=== PATIENT | female | born 1970 | race Caucasian/White ===

== ENCOUNTER 2016-06-04 23:39 | Emergency (ER) ==
[2016-06-04] MEDS ORDERED: BENADRYL IVP STA (23:40)
[2016-06-04] MEDS ORDERED: SOLU-MEDROL 125 MG IVP STA (23:40)
[2016-06-04 23:49] LABS: BASOPHILS # (AUTO) 0.1 K/uL (0-0.2); BASOPHILS % (AUTO) 0.6 % (0.0-3.0); EOSINOPHILS # (AUTO) 0.2 K/ul (0.0-0.7); EOSINOPHILS % (AUTO) 2.1 % (0.0-7.0); HEMATOCRIT 38.8 % (37.0-47.0); HEMOGLOBIN 13.1 g/dl (12.0-16.0); IMMATURE GRANULOCYTE % (AUTO) 0.4 % (0.0-5.0); LYMPHOCYTES # (AUTO) 3.3 K/uL (0.60-3.4); LYMPHOCYTES % (AUTO) 39.3 (10.0-50.0); MEAN CORPUSCULAR HEMOGLOBIN 28.3 pg (27.0-31.0); MEAN CORPUSCULAR HGB CONC 33.8 (31.8-35.4); MEAN CORPUSCULAR VOLUME 83.8 fl (81.0-99.0); MONOCYTES # (AUTO) 0.7 K/uL (0.4-2.0); MONOCYTES % (AUTO) 8.5 (0-10); NEUTROPHILS # (AUTO) 4.1 K/ul (2.0-6.9); NEUTROPHILS % (AUTO) 49.1; PLATELET COUNT 305 10^3/uL (140-440); RED BLOOD COUNT 4.63 10^6/ul (4.20-5.40); WHITE BLOOD COUNT 8.28 K/ul (4.6-10.2)
[2016-06-05 00:06] LABS: ALBUMIN/GLOBULIN RATIO 1.21; ANION GAP 14.1; BILIRUBIN,TOTAL 0.24 mg/dL (0.00-1.20); BUN/CREATININE RATIO 18.29; CALCIUM 8.7 mg/dL (8.2-10.2); CREATININE 0.82 mg/dL (0.60-1.30); POTASSIUM 3.1 mmol/L (3.5-5.10); TOTAL PROTEIN 7.3 g/dL (6.4-8.2)
[2016-06-05 00:07] VITALS: BP 147/94; TEMP 99.6; BMI 51.6
[2016-06-05] MEDS ORDERED: ATIVAN IM STA (00:27)
--- NOTE | 2016-06-05 00:30 | ED.PDOC ---
General ED Provider: Dr. NEELAM FUNES Chief Complaint: Allergic Reaction Stated Complaint: Face swolen, tongue swollen, has similar problems before couple of times. Time Seen by Physician: 00:28 Mode of Arrival: Ambulance Information Source: Patient Primary Care Provider: ANA LILIA HARRY Nursing and Triage Documentation Reviewed and Agree: Yes Environmental Complaint Exam - Allergic Reaction Complaint/Exam Symptoms Are: Still present Timing: Intermittent Initial Severity: Moderate Current Severity: Moderate Location: Discrete Character: Present: Swelling Aggravating: Reports: None Alleviating: Reports: None Associated Signs and Symptoms: Reports: Difficulty breathing, Hoarseness, Throat tightening. Denies: Cough, Wheezing, Chest pain, Throat swelling, Rash, Abdominal pain, Diaphoresis, Lightheadedness, Syncope, Nausea, Vomiting Possible Reaction To: Reports: Unknown Related History: Similar episode Diphenhydramine Prior to Arrival: No Epinephrine Auto Injector Prior to Arrival: No Respiratory Distress: Mild Findings: Present: Hoarseness, Angioedema Differential Diagnoses: Angioedema, Local Allergic Reaction Review of Systems - Review Of Systems Constitutional: Reports: Malaise, Weakness Eyes: Reports: No symptoms Ears, Nose, Mouth, Throat: Reports: No symptoms Respiratory: Reports: Cough, Short of air Cardiac: Reports: No symptoms GI: Reports: No symptoms : Reports: No symptoms Musculoskeletal: Reports: No symptoms Skin: Reports: No symptoms Neurological: Reports: No symptoms Endocrine: Reports: No symptoms Hematologic/Lymphatic: Reports: No symptoms All Other Systems: Reviewed and Negative Past Medical History - Past Medical History Previously Healthy: No Endocrine: Reports: DM 2 Cardiovascular: Reports: Hypertension Respiratory: Reports: COPD Hematological: Reports: None Gastrointestinal: Reports: GERD Genitourinary: Reports: None Neuro/Psych: Reports: None Musculoskeletal: Reports: None Cancer: Reports: None Last Menstrual Period: 2 weeks - Surgical History General Surgical History: Reports: None - Family History Family History: Reports: None - Social History Smoking Status: Never smoker Hx Substance Use: No Alcohol Screening: Occasionally - Immunizations Tetanus Shot up to Date: No (unsure) Physical Exam - Physical Exam Appearance: Ill-appearing, Obese Ill-appearing: Moderate Eyes: Conjunctiva clear (face is red, swollen tongues) ENT: Ears normal, Nose normal, Oropharynx normal Respiratory: Wheezes Cardiovascular: RRR, Pulses normal, No rub, No murmur GI/: Soft, Nontender, No masses, Bowel sounds normal, No Organomegaly Musculoskeletal: Normal strength, ROM intact, No edema, No calf tenderness Skin: Warm, Dry, Normal color Neurological: Sensation intact, Motor intact, Reflexes intact, Cranial nerves intact, Alert, Oriented Psychiatric: Affect appropriate, Mood appropriate Re-Evaluation - Re-Evaluation Time of Re-Evaluation: 01:25 Status: Improved Critical Care Note - Critical Care Note Total Time (mins): 0 Course - Course Hematology/Chemistry: 06/04/16 23:47 06/04/16 23:47 Orders, Labs, Meds: Lab Review 06/04/16 23:47 WBC 8.28 RBC 4.63 Hgb 13.1 Hct 38.8 MCV 83.8 MCH 28.3 MCHC 33.8 RDW Coeff of Santi 12.6 Plt Count 305 Immature Gran % (Auto) 0.4 Neut % (Auto) 49.1 Lymph % (Auto) 39.3 Henry % (Auto) 8.5 Eos % (Auto) 2.1 Baso % (Auto) 0.6 Immature Gran # (Auto) 0.0 Neut # 4.1 Lymph # 3.3 Henry # 0.7 Eos # 0.2 Baso # 0.1 Sodium 138 Potassium 3.1 L Chloride 105 Carbon Dioxide 22 Anion Gap 14.1 BUN 15 Creatinine 0.82 Estimated GFR (MDRD) 76.00 BUN/Creatinine Ratio 18.29 Glucose 139 H Calcium 8.7 Total Bilirubin 0.24 AST 17 ALT 22 Alkaline Phosphatase 55 Total Protein 7.3 Albumin 4.0 Globulin 3.3 Albumin/Globulin Ratio 1.21 Orders Category Date Time Status ED IV/MEDIPORT/POWERPORT .ONCE EMERGENCY 06/04/16 23:40 Active CBC W/ AUTO DIFF Stat LAB 06/04/16 23:47 Completed COMPREHENSIVE METABOLIC PANEL Stat LAB 06/04/16 23:47 Completed 0.9 % Sodium Chloride [Saline Flush] MEDS 06/04/16 23:40 Ordered 1 syr IVF PRN PRN Diphenhydramine Inj [Benadryl] MEDS 06/04/16 23:40 Discontinued 25 mg IVP ONCE STA Lorazepam Inj [Ativan] MEDS 06/05/16 00:27 Discontinued 1 mg IM ONCE STA Methylprednisolone Sod Succ/Pf [Solu-Medrol 125 mg] MEDS 06/04/16 23:40 Discontinued 125 mg IVP ONCE STA Potassium Chloride [K-Dur] MEDS 06/05/16 00:32 Discontinued 40 meq PO ONCE STA Medications Generic Name Dose Route Start Last Admin Trade Name Glynn PRN Reason Stop Dose Admin Sodium Chloride 1 syr 06/04/16 23:40 Saline Flush IVF PRN PRN To flush IV Discontinued Medications Generic Name Dose Route Start Last Admin Trade Name Glynn PRN Reason Stop Dose Admin Diphenhydramine HCl 25 mg 06/04/16 23:40 06/04/16 23:52 Benadryl IVP 06/04/16 23:41 25 mg ONCE STA Administration Lorazepam 1 mg 06/05/16 00:27 06/05/16 00:37 Ativan IM 06/05/16 00:28 1 mg ONCE STA Administration Methylprednisolone Sodium Succinate 125 mg 06/04/16 23:40 06/04/16 23:52 Solu-Medrol 125 Mg IVP 06/04/16 23:41 125 mg ONCE STA Administration Potassium Chloride 40 meq 06/05/16 00:32 06/05/16 00:37 K-Dur PO 06/05/16 00:33 40 meq ONCE STA Administration Vital Signs: Temp Pulse Resp BP Pulse Ox 06/04/16 23:39 99.6 F 78 22 147/94 H 98 Departure - Departure Time of Disposition: 02:00 Disposition: HOME SELF-CARE Discharge Problem: Allergic state Instructions: General Allergic Reaction (ED) Condition: Stable Pt referred to PMD for follow-up: Yes Additional Instructions: stop lisinopril - HCTZ medrol dose pack benadry 50 po tid increase hydration Prescriptions: Diphenhydramine HCl [Benadryl] 25 mg PO Q6H #14 capsule Methylprednisolone [Medrol Dosepak] 4 mg PO DIRECTED #1 pkg Home Medications: Ambulatory Orders Diphenhydramine HCl [Benadryl] 25 mg PO Q6H #14 capsule 06/05/16 Methylprednisolone [Medrol Dosepak] 4 mg PO DIRECTED #1 pkg 06/05/16 Disposition Discussed With: Patient, Family
[2016-06-05] MEDS ORDERED: K-DUR PO STA (00:32)
== END 2016-06-05 01:40 | disposition home or self-care (01) ==
LOC: ED 23:39
DX: T78.3XXA Angioneurotic edema, initial encounter (principal)
CPT/HCPCS: 36415; 80053; 85025; 96372; 96374; 96375; 99283